=== PATIENT | male | born 1965 | race Caucasian/White ===

== ENCOUNTER 2025-07-25 09:16 | Emergency (ER) | payer BC, SELFPAY ==
[2025-07-25] VITALS (21 sets, daily range): BP systolic 85–118; BP diastolic 61–83; PULSE 54–84; TEMP 36.9; O2SAT 94–100; BMI 28.0
--- NOTE | 2025-07-25 09:24 | ECG_ITS ---
[facility] Test Date: 2025-07-25 Pat Name: WENDY MORENO Department: Room: - Gender: Male Eight Arm Operator: : 1965 Requested By: Order Number: [id number] Reading MD: CURT JULIAN Measurements Intervals Hoyt Rate: 60 P: 40 GA: 130 QRS: 64 QRSD: 86 T: 61 QT: 406 QTc: 408 Interpretive Statements 1100 Sinus rhythm 9110 normal ECG No previous ECG available for comparison Electronically Signed On 07-25-2025 16:01:32 EDT by CURT JULIAN
--- NOTE | 2025-07-25 09:24 | CT_ITS ---
The [address] [address] Patient Name: WENDY MORENO MRN: [id number] date: 1965 Sex: M Assigned Patient Location: ER Current Patient Location: ER Accession/Order Number: [id number] Exam Date: 07/25/2025 10:10 Report Date: 07/25/2025 10:45 At the request of: GAURAV UPTON DO Procedure: CT angio abdomen pelvis CTA OF THE ABDOMEN AND PELVIS WITH CONTRAST CLINICAL DATA: Acute bright red rectal bleeding this morning. Dizziness and syncope. COMPARISON: None Spiral images were obtained through the abdomen and pelvis following 100 mL of Omnipaque 350. Sagittal, coronal and 3-D volume rendered reconstructions of the aorta and its branches were reviewed. This CT exam was performed using one or more following dose reduction techniques: Automated exposure control, adjustment of the mA and/or kV according to patient size, or use of iterative reconstruction technique. Limited cuts through the lung bases show minor atelectasis or scarring. There is a tiny hiatal hernia. The abdominal aorta is normal caliber. There is no evidence of dissection. There is normal opacification of the visceral and iliac arteries. There is no pooling of contrast to suggest a site of active bleeding. Cholelithiasis is present. No intrahepatic masses are noted. The spleen, pancreas and adrenal glands show no acute abnormalities. There are symmetric renal nephrograms, without hydronephrosis. There are a few tiny lymph nodes. No ascites is present. There is fluid and food debris within the stomach. The small bowel loops are normal caliber. A small amount of colonic stool is seen. Left-sided colonic diverticula are visualized. There is subtle levoscoliotic curvature and degenerative changes at the spine. Images through the pelvis show no appendiceal inflammation. There are nondistended small bowel loops. There is fluid at the distal colon. Additional descending and sigmoid diverticula are noted. No active inflammation is seen. The prostate is within normal limits for size and contains calcification. The urinary bladder is poorly distended and the wall appears thickened. No ascites or lymphadenopathy is noted. There are screws at the proximal right femur. CT/CT angio abdomen pelvis IMPRESSION: CHOLELITHIASIS. NO BOWEL OR URINARY TRACT OBSTRUCTION. DIVERTICULOSIS. UNDER DISTENDED URINARY BLADDER WITH APPARENT WALL THICKENING. NO OBVIOUS ACTIVE BLEEDING. Impression dictated by: Megan Núñez M.D. 07/25/2025 10:45 AM Dictation Location: [place] [address] Electronically authenticated by: [id number] Y Date: 07/25/2025 10:45
--- NOTE | 2025-07-25 09:30 | ED_ITS ---
HPI HPI - General Adult General Chief complaint: GI Bleed Stated complaint: weakness Time Seen by Provider: 07/25/25 09:24 History of Present Illness HPI narrative: Patient is a 59-year-old male presenting to the emergency department from work for concerns of a syncopal event. Patient states that he had a bloody bowel movement earlier this morning. He has had a second bowel movement approximately an hour ago. He states that after the bowel movement, he got up from the toilet, walked over to his coworker, then felt extremely dizzy/lightheaded. He subsequently fainted. On EMS arrival, they state that the patient was on the floor, pale, and unresponsive. After a few seconds, he eventually came to. The patient and EMS deny any trauma or head injury during this event. Denies any seizure-like activity. Did not lose bladder/bowel function. No tongue biting. He denies ever having bloody stools in the past. He states that he has never had a colonoscopy. He denies history of intra-abdominal surgeries, diverticulosis, or hemorrhoids. He states that the bloody stools were painless. Patient on arrival still feels lightheaded when he sits up, but is otherwise asymptomatic. He denies any chest pain or shortness of breath. No abdominal pain, fevers, chills, nausea, or vomiting. He is not on anticoagulation. His only medical history is hypercholesterolemia. He has no history of cardiac disease. Related Data Allergies Allergy/AdvReac Type Severity Reaction Status Date / Time Penicillins Allergy Severe Swelling Verified 07/25/25 09:30 of Lip/Tongue/Throat Review of Systems ROS Status of ROS 10 or more systems reviewed and unremark able except as noted in history and below PFSH PFSH Social History Little interest or pleasure in doing things: not at all Feeling down, depressed, or hopeless: not at all Exam Narrative Exam Narrative: CONSTITUTIONAL: Well-appearing, answering questions and following commands appropriately SKIN: Was warm and dry, no pallor. EYES: No conjunctival pallor EARS, NOSE, THROAT: Moist oral mucosa. No tongue lacerations RESPIRATORY: Clear to auscultation bilaterally, no wheezes, crackles, or stridor, no use of accessory muscles CARDIOVASCULAR: Normal rate and regular rhythm. There is no S3, S4, murmur, rub. GASTROINTESTINAL: Abdomen was soft, non-tender, and non-distended. There is no guarding or rebound tenderness. Rectal examination performed with 2 nurse landscaper's demonstrated no active rectal bleeding. There is no rectal tenderness with MOLLY. There is no palpable/appreciable internal or external hemorrhoids or anal fissures. MUSCULOSKELETAL: No peripheral edema. NEUROLOGIC: Patient is awake and alert. Equal strength in all extremities. Facies were symmetrical. Constitutional Vital Signs, click to edit/add: Last Vital Signs Temp 98.5 F 07/25/25 09:25 Pulse 76 07/25/25 11:02 Resp 19 07/25/25 10:50 BP 108/73 07/25/25 11:02 Pulse Ox 99 07/25/25 10:50 O2 Del Method Room Air 07/25/25 09:35 Course Vital Signs Vital signs: Vital Signs Pulse Rate 62 07/25/25 09:18 Respiratory Rate 17 07/25/25 09:18 Pulse Oximetry 94 L 07/25/25 09:18 Temperature 98.5 F 07/25/25 09:25 Pulse Rate 76 07/25/25 11:02 Respiratory Rate 19 07/25/25 10:50 Blood Pressure 108/73 07/25/25 11:02 Pulse Oximetry 99 07/25/25 10:50 Oxygen Delivery Method Room Air 07/25/25 09:35 Medical Decision Making MDM Narrative Medical decision making narrative: Patient is a 59-year-old male presenting to the emergency department from work via EMS after 2 painless bloody bowel movements and a syncopal event. On arrival to the ED, patient was placed on the cardiac rehabilitation program director that demonstrated normal sinus rhythm by my interpretation. He was hypotensive with a blood pressure of 86/55. He is afebrile and saturating 100% on room air. His abdomen soft and nontender. Rectal examination demonstrated no active bleeding or hemorrhoids. My clinical impression is that the patient saw his old blood, and subsequently had a vasovagal event. Patient had prodromal symptoms prior to the LOC, making cardiogenic etiologies of lower likelihood. Differential diagnosis includes vasovagal syncope, AVM, diverticular bleed, internal hemorrhoid, ACS, arrhythmia, malignancy, or other electrolyte/metabolic derangement. IV was established and laboratory studies were obtained. He received 1 L bolus normal saline in the field, and an additional 1 L bolus of normal saline here in the ED. CT angiography of the abdomen/pelvis was obtained. 12 Lead EKG: Normal sinus rhythm at a rate of 60. Normal axis. No ST segment elevations. QRS, [place], and QTc interval within normal limits. Final impression: normal sinus rhythm without evidence of acute myocardial ischemia Laboratory studies were unremarkable. No significant electrolyte or metabolic derangement. No evidence of acute kidney injury. No anemia, leukocytosis, or thrombocytopenia. No transaminitis or hyperbilirubinemia. Troponin nonelevated. Fecal occult blood test positive. CT abdomen/pelvis independently reviewed and interpreted by myself and radiology demonstrated diverticulosis without active GI bleeding. On reevaluation, patient states he feels significantly improved. When he gets up from the bed, he does not become lightheaded or presyncopal. His hypotension is now resolved s/p 2 L of IV fluids. Orthostatic vital signs: Supine 108/73, heart rate 76. Sitting up 118/81, heart rate 84. Standing up 113/83, heart r ate 80. I do believe the patient stable for discharge and outpatient follow-up with his PCP. This presentation is likely secondary to vasovagal syncope. He has no active GI bleeding and is hemodynamically stable. He was instructed follow-up with his PCP in the next 3-5 days. I recommended he gets a colonoscopy as he is 59 and never had one. Return precautions were given including any new or con cerning symptoms, such as large amounts of rectal bleeding or further episodes of syncope. Patient understands and agrees to the plan. FINAL IMPRESSION: #Acute vasovagal syncope #Acute bright red blood per rectum DISPOSITION: Discharged home CONDITION: Good Medical Records Medical records reviewed: Yes I reviewed the patient's medical records Lab Data Lab results reviewed: Yes I reviewed the patient's lab results Labs: Lab Results 07/25/25 07/25/25 07/25/25 Range/Units 09:24 10:03 10:43 WBC 12.7 H (4.0-11.0) 10^3/uL RBC 4.74 (4.70-6.10) 10^6/uL Hgb 14.3 (14.0-18.0) g/dL Hct 42.9 (42.0-54.0) % MCV 90.5 (80.0-94.0) fL MCH 30.2 (25.9-34.0) pg MCHC 33.3 (29.9-35.2) g/dL RDW 13.0 (11.0-15.0) % Plt Count 253 (150-450) 10^3/uL MPV 10.1 (9.5-13.5) fL Neut % (Auto) 81.3 H (43.0-75.0) % Lymph % (Auto) 12.3 L (20.5-60.0) % [place] % (Auto) 5.1 (1.7-12.0) % Eos % (Auto) 0.4 L (0.9-7.0) % Baso % (Auto) 0.7 (0.2-2.0) % Neut # (Auto) 10.3 H (1.4-6.5) 10^3/uL Lymph # (Auto) 1.6 (1.2-3.8) 10^3/uL [place] # (Auto) 0.7 (0.3-0.8) 10^3/uL Eos # (Auto) 0.1 (0.0-0.7) 10^3/uL Baso # (Auto) 0.1 (0.0-0.1) 10^3/uL Abs Immat Gran (auto) 0.03 (0.00-0.03) 10^3/uL Imm/Tot Granulo (auto) 0.2 (0.0-0.5) % Sodium 145 (136-145) mmol/L Potassium 4.3 (3.5-5.1) mmol/L Chloride 111 H (98-107) mmol/L Carbon Dioxide 25.0 (21.0-32.0) mmol/L Anion Gap 13.3 BUN 12.0 (7.0-18.0) mg/dL Creatinine 0.98 (0.70-1.30) mg/dL Est GFR ( Amer) >60 (>=60 mL/min/1.73m^2) Est GFR (Non-Af Amer) >60 (>=60 mL/min/1.73m^2) BUN/Creatinine Ratio 12.2 Glucose 91 (74-106) mg/dL Calcium 8.1 L (8.5-10.1) mg/dL Magnesium 1.9 (1.8-2.4) mg/dL Total Bilirubin 0.3 (0.2-1.0) mg/dL AST 15 (15-37) U/L ALT 19 (16-63) U/L Alkaline Phosphatase 57 (46-116) U/L Troponin I High Sens 4.6 (4.0-76.1) pg/mL Total Protein 6.2 L (6.4-8.2) g/dL Albumin 2.9 L (3.4-5.0) g/dL Globulin 3.3 g/dL Albumin/Globulin Ratio 0.9 Stool Occult Blood Positive A Imaging Data CT scan - abdomen: Attestation: I personally reviewed and interpreted this imaging study as follows: Radiologist's impression: ITS Impressions Abdomen/Pelvis CTA 07/25/25 09:24 IMPRESSION: CHOLELITHIASIS. NO BOWEL OR URINARY TRACT OBSTRUCTION. DIVERTICULOSIS. UNDER DISTENDED URINARY BLADDER WITH APPARENT WALL THICKENING. NO OBVIOUS ACTIVE BLEEDING. Impression dictated by: Megan Núñez M.D. 07/25/2025 10:45 AM Dictation Location: [place] [address] Electronically authenticated by: [id number] Y Date: 07/25/2025 10:45 ECG Data Attestation: I personally reviewed and interpreted this ECG as follows: Discharge Plan Discharge Chief Complaint: GI Bleed Clinical Impression: Syncope, vasovagal, BRBPR (bright red blood per rectum) Patient Disposition: Home, Self-Care Time of Disposition Decision: 11:05 Condition: Good Mode of Transportation: Private Vehicle Print Language: [place] Instructions: Gastrointestinal Bleeding (ED), Syncope (ED)
[2025-07-25] MEDS: 0.9 % SODIUM CHLORIDE 1,000 ML 1000 ML IV (09:41)
[2025-07-25 10:29] LABS: Alanine Aminotransferase 19 U/L (16-63); Albumin Globulin Ratio 0.9; Albumin Level 2.9 g/dL (3.4-5.0); Alkaline Phosphatase 57 U/L (46-116); Anion Gap 13.3; Aspartate Amino Transferase 15 U/L (15-37); Blood Urea Nitrogen 12.0 mg/dL (7.0-18.0); Calcium 8.1 mg/dL (8.5-10.1); Carbon Dioxide 25.0 mmol/L (21.0-32.0); Chloride 111 mmol/L (98-107); Estimated GFR (African America >60 (>=60 mL/min/1.73m^2); Estimated GFR (Non-African Ame >60 (>=60 mL/min/1.73m^2); Globulin 3.3 g/dL; Glucose 91 mg/dL (74-106); Potassium 4.3 mmol/L (3.5-5.1); Sodium 145 mmol/L (136-145); Total Protein 6.2 g/dL (6.4-8.2)
[2025-07-25 10:33] LABS: Magnesium 1.9 mg/dL (1.8-2.4)
[2025-07-25 10:53] LABS: Hematocrit 42.9 % (42.0-54.0); Hemoglobin 14.3 g/dL (14.0-18.0); Immature Granulocytes Abs Auto 0.03 10^3/uL (0.00-0.03); Immature Granulocytes Pct Auto 0.2 % (0.0-0.5); Lymphocytes Absolute Auto 1.6 10^3/uL (1.2-3.8); Mean Corpuscular HGB Conc 33.3 g/dL (29.9-35.2); Mean Corpuscular Hemoglobin 30.2 pg (25.9-34.0); Mean Corpuscular Volume 90.5 fL (80.0-94.0); Platelet Count 253 10^3/uL (150-450); Red Blood Count 4.74 10^6/uL (4.70-6.10); White Blood Count 12.7 10^3/uL (4.0-11.0)
[2025-07-25 11:06] LABS: INR 1.07; Partial Thromboplastin Time 26.5 sec (22.3-36.2); Prothrombin Time 11.3 sec (9.0-11.6)
--- OUTSIDE RECORDS SUMMARY | 2025-07-25 11:06 | XMS_ITS | Clinical Summary ---
Author Organization [facility] Address [address] [place] [place] [address] Care Team Providers Care Renovation Plant Supervisor Name Role Phone Miguel Knapp Primary Care Provider [phone] Allergies Active Allergy Reactions Criticality Noted Date Comments Penicillins Swelling,Itchy Throat 09/23/2018 Medications Rosuvastatin 5 MG tabletIndications: Elevated LDL cholesterol level Take 1 tablet by mouth daily. 90 tablet 3 07/14/20 24 Active Methocarbamol 500 MG tablet Take 1 tablet by mouth every 12 hours as needed for Muscle spasms. 60 tablet 1 02/07/20 25 Active diclofenac EC 75 MG Tab tabletIndications: Primary osteoarthritis of right knee,Chronic pain of right knee Take 1 tablet by mouth 2 times daily. 60 tablet 2 07/20/20 25 Active tizanidine 2 MG Tab 1-2 pills po at bedtime prn spasms/pain 30 tablet 1 09/22/20 19 020 Discontinued Active Problems Problem Noted Date Diagnosed Date Elective surgery 11/10/2024 Obesity: body mass index of 30.0-34.9 10/17/2018 Clostridium difficile enterocolitis 09/24/2018 Assessment & Plan (09/24/2018 10:15 AM EDT): Flagyl ordered Isolation precautions Continue to monitor Nausea 09/24/2018 Assessment & Plan (09/24/2018 10:15 AM EDT): Resolved Zofran PRN for nausea and vomiting Monitor electrolytes and I&O Cholelithiasis 09/24/2018 Assessment & Plan (09/24/2018 10:16 AM EDT): Surgeon following Acute abdominal series ordered Continue to monitor Generalized abdominal pain 09/24/2018 Assessment & Plan (09/24/2018 10:16 AM EDT): Pain management Acute abdominal series ordered Partial small bowel obstruction 09/23/2018 Assessment & Plan (09/24/2018 10:14 AM EDT): Patient started on clear liquid diet today Zofran for nausea Surgeon consulted, Levaquin, Flagyl and Scopolamine patch ordered IVF running Monitor labs and VS as ordered Abdominal XR ordered Encounters Date Type Department Care Team Description 07/20/2025 Telephone [facility] [address] [place] [address] Dona Knapp MA Medication Management 05/17/2025 11:30 AM EDT Office Visit [address] [address] Jose Rose DO Primary osteoarthritis of right knee (Primary Dx) 05/17/2025 11:13 AM EDT - 05/17/2025 11:59 PM EDT Hospital Encounter [facility] [address] [place] [id number] Jose Rose DO Discharge Disposition: Home or Self Care from Last 3 Months Immunizations Immunization Administration Dates Next Due [id number] COVID-19 monovalen t vaccine (Moderna), 12yr+, 100mcg/0.5mL 04/25/2021,03/25/2021 Family History Medical History Relation Name Comments Hypertension Father Jad Moreno Sr. Stroke Father Jad Moreno Sr. Bleeding or Clotting Problems Neg Hx Coronary Artery Disease Neg Hx Diabetes Neg Hx Dysrhythmia Neg Hx Heart Failure Neg Hx Myocardial Infarction Neg Hx Relation Name Status Comments Father Jad Moreno Sr. Alive Mother Alive Social History Tobacco Use Types Packs/Day Years Used Date Smoking Tobacco: Never Smokeless Tobacco: Never Tobacco Cessation:Counseling Given: Not Answered Alcohol Use Standard Drinks/Week Comments Yes 1 (1 standard drink = 0.6 oz pur e alcohol) Just Occasionally Sex and Gender Information Value Date Recorded Sex Assigned at Not on file Legal Sex Male 7:10 PM EST Gender Identity Male 09/23/2018 4:59 PM EDT Sexual Orientation Straight 12/10/2021 11 :46 AM EST Last Filed Vital Signs Vital Sign Reading Time Taken Comments Blood Pressure 146/92 02/06/2025 10:05 AM EDT Pulse 96 02/06/2025 10:05 AM EDT Temperature 36.2 C (97.2 F) 05/17/2025 11:32 AM EDT Respiratory Rate 16 11/11/2024 8:21 AM EST Oxygen Saturation 96% 02/06/2025 10:05 AM EDT Inhaled Oxygen Concentration - - Weight 90.4 kg (199 lb 3.2 oz) 05/17/2025 11:32 AM EDT Height 172.7 cm (5' 8 ) 05/17/2025 11:32 AM EDT Body Mass Index 30.29 05/17/2025 11:32 AM EDT Plan of Treatment Upcoming Encounters Date Type Department Care Team (Late st Contact Info) Description 08/17/2025 10:45 AM EDT Office Visit [facility] [address] [place] [address] Jose Rose, DO [address] [place] [address] Health Maintenance Due Date Last Done Comments HEPATITIS C VIRUS SCREENING 1967 TETANUS 1967 HIV SCREENING DISCUSSION 1982 HEP B VACCINE (1 of 3 - 19+ 3-dose series) 1986 TDAP (ADULT) 1986 COLORECTAL CANCER SCREENING DISCUSSION 2012 PNEUMOCOCCAL VACCINE SERIES (1 of 1 - PCV) 2017 ZOSTER (SHINGLES) VACCINE (1 of 2) 2017 PROSTATE CANCER SCREENING DISCUSSION 06/12/2024 06/12/2023, 06/12/2023, 06/09/2023, Additional history exists COVID-19 VACCINE (3 - 2023-2 5 season) 2024 04/25/2021, 03/25/2021 INFLUENZA VACCINE (#1) 2025 LIPID SCREENING 06/12/2028 06/12/2023, 2018 Goals Goal Patient Goal Type Associated Problems Recent Progress Patient-Stated? Author Physical Therapy Physical Therapy No Coreen Nation, PT Note: 1. The patient will safely, correctly, and independently demonstrate the ability to perform a progressive HEP to achieve maximum rehabilitation potential and prevent this condition from recurring. 2. The patient will reduce present VAS pain to 0-1/10 to decrease dependence on medication. 3. The patient will return to prior sleeping positions and patterns without disturbances due to the present symptoms of this condition. 4. The patient will demonstrate normal transfer and bed mobility ability (sit to and from stand, sit to and from supine, scooting and rolling) to return to prior level of function. 5. The patient will demonstrate functional pain free spinal AROM and at least good strength in core and UE musculature to assist with prior household management tasks, sustaining static positions, stair negotiation, ambulation, family care tasks, work, and or ADL. 6. The patient will demonstrate safe body mechanics with desired lifting, pushing, and pulling tasks to prevent re-injury and assist with return to prior level of function. 7. Reduce fall risk by recognizing and educating on contributing factors including home environment, current health status, and mobility limitations. Medical Devices Implanted Type Area Oliver Filter Operator Device Identifier Shelf Expiration Date Model / Serial / Lot Graft Bn 2cc Ptty Attrax Strl [id number] - [id number] Implanted:Qty : 1 on 11/10/2024 by Rajan Chappell MD at [facility] Tissue N/A: Spine Cervical NUVASIVE 04/19/2028 [id number] / / [id number] Screw Bn 17mm 3.5mm Slf Drl [id number] - [id number] Implanted:Qty : 1 on 11/10/2024 by Rajan Chappell MD at [facility] N/A: Spine Cervical NUVASIVE 11/10/2024 [id number] 11/10/2024 Plate Bn 36mm 1.6v Spne Crv [id number] - [id number] Implanted:Qty : 1 on 11/10/2024 by Rajan Chappell MD at [facility] N/A: Spine Cervical NUVASIVE 11/10/2024 [id number] 11/10/2024 Screw Bn 19mm 3.5mm Slf Drl [id number] - [id number] Implanted:Qty : 1 on 11/10/2024 by Rajan Chappell MD at [facility] N/A: Spine Cervical NUVASIVE 11/10/202411/10/2024 Screw Bn 19mm 3.5mm Slf Drl [id number] - [id number] Implanted:Qty : 1 on 11/10/2024 by Rajan Chappell MD at [facility] N/A: Spine Cervical NUVASIVE 11/10/202411/10/2024 Screw Bn 17mm 3.5mm Slf Drl [id number] - [id number] Implanted:Qty : 1 on 11/10/2024 by Rajan Chappell MD at [facility] N/A: Spine Cervical NUVASIVE 11/10/202411/10/2024 Screw Bn 19mm 3.5mm Slf Drl [id number] - [id number] Implanted:Qty : 1 on 11/10/2024 by Rajan Chappell MD at [facility] N/A: Spine Cervical NUVASIVE 11/10/202411/10/2024 Screw Bn 19mm 3.5mm Slf Drl [id number] - [id number] Implanted:Qty : 1 on 11/10/2024 by Rajan Chappell MD at [facility] N/A: Spine Cervical NUVASIVE 11/10/202411/10/2024 Cage Spinal [id number] Modulus 7d Cervical [id number] - [id number] Implanted:Qty : 1 on 11/10/2024 by Rajan Chappell MD at [facility] N/A: Spine Cervical NUVASIVE 01/12/2029 [id number] / / [id number] Cage Spinal [id number] Modulus 7d Cervical [id number] - [id number] Implanted:Qty : 1 on 11/10/2024 by Rajan Chappell MD at [facility] N/A: Spine Cervical NUVASIVE 08/17/2029 [id number] / / [id number] Procedures Procedure Name Priority Date/Time Associated Diagnosis Comments NV DRAIN/INJECT LARGE JOINT/BURSA PERFORMABLE Routine 05/17/2025 11:30 AM EDT Primary osteoarthritis of right knee LIPID PANEL W CALCULATED LDL Today 06/12/2023 7:53 AM EDT Numbness and tingling in right hand Elevated LDL cholesterol level Screening PSA (prostate specific antigen) Routine general medical examination at a health care facility Diastasis recti PSA, SCREENING Today 06/12/2023 7:53 AM EDT Numbness and tingling in right hand Elevated LDL cholesterol level Screening PSA (prostate specific antigen) Routine general medical examination at a health care facility Diastasis recti from Last 3 Months or Most Recently Relevant to Health Maintenance Results * NV DRAIN/INJECT LARGE JOINT/BURSA PERFORMABLE (05/17/2025 11:30 AM EDT) Anatomical Region Laterality Modality Other Narrative 05/17/2025 11:30 AM EDT Tavo Hawkins 05/17/2025 1:57 PM LARGE JOINT/BURSA INJECTION AND/OR ASPIRATION: R knee Date/Time: 05/17/2025 11:30 AM Performed by: Jose Rose DO Authorized by: Jose Rose DO Supporting Documentation Indications: pain Procedure Details: Location: knee - R knee Local Anesthetic: ethyl chloride (cold spray) Needle size: 22 G Medication Verification: I have personally verified and performed the final check of the medication(s) used in this procedure prior to administration. The following items were included during the verification process for medication(s) administered: drug name, strength, volume, expiration, physical integrity and appearance of the medication(s). Medications administered: 1 mL triamcinolone 40 MG/ML; 3 mL Lidocaine 10 mg/mL Patient tolerance: patient tolerated the procedure well with no immediate complications Pre-Procedure Details The attending physician was present for the entire procedure. Consent: Consent was obtained prior to the procedure after discussion of the risks, benefits and alternatives, and expected outcomes were discussed with the patient. The possibilities of reaction to medication, bleeding, infection, the need for additional procedures, failure to diagnosis a condition, and creating a complication requiring operation were discussed with the patient. The patient concurred with the proposed plan, giving consent. Timeout: Immediately prior to procedure a time out was called to verify the correct patient, procedure, medication(s) and site/laterality as required. Preparation: Patient was prepped in the usual sterile fashion. us Jose Rose DO BEDSIDE PROCEDURES Final Resul t * PSA, SCREENING (06/12/2023 7:53 AM EDT) PROSTATE SPECIFIC ANTIGEN 0.831 0 - 4 NG/ML [address] Comment: OBTAIN BASELINE BETWEEN AGES OF 45-75 LESS THAN 1.0 ng/mL REPEAT TESTING AT 2-4 YEARS 1.0-3.0 ng/mL REPEAT TESTING AT 1-2 YEARS GREATER THAN 3.0 ng/mL REPEAT PSA,MOLLY, AND WORKUP FOR BENIGN DISEASE AGE GREATER THAN 75, PSA LESS THAN 3 ng/mL REPEAT TESTING IN 1-4 YEARS Testing performed at [place], [place] [address] Blood 06/12/2023 7:53 AM EDT 06/12/2023 7:54 AM EDT us Miguel GILL IMMUNOLOGY ORDERABLES Final R esult [address] [address] * (ABNORMAL) LIPID PANEL W CALCULATED LDL (06/12/2023 7:53 AM EDT) CHOLESTEROL 236(H) 120 - 200 MG/DL [address] TRIGLYCERIDE 133 0 - 150 MG/DL [address] HDL CHOLESTEROL 35 26 - 63 MG/DL [address] LDL CHOLESTEROL, CALCULATED 174 MG/DL [address] VLDL Cholesterol, Calculated 27(H) 5.0 - 25 MG/DL [address] TCHOL/HDL RATIO, MANUAL ENTER 6.[address] Comment: RISK TOTAL/HDL RATIO MEN WOMEN 1/2 AVERAGE 3.43 3.27 AVERAGE 4.97 4.44 2X AVERAGE 9.55 7.05 3X AVERAGE 23.99 11.04 Testing performed at [place], [place] [address] Blood 06/12/2023 7:53 AM EDT 06/12/2023 7:54 AM EDT Miguel GILL CHEMISTRY ORDERABLES Final Re sult [facility] - [address] [facility] [address] [place] [address] from Last 3 Months or Most Recently Relevant to Health Maintenance Insurance [facility] PPO POS [facility] PPO POS Advance Directives For more information, please contact: [phone] (7:30 AM - 6PM [facility], Wednesday-Wednesday) * Full Code (Latest Code Status on File) Date Activated Date Inactivated Comments 11/10/2024 6:44 PM * Full Code Date Activated Date Inactivated Comments 09/23/2018 9:39 PM 11/10/2024 6:44 PM Care Teams Renovation Plant Supervisor Relationship Specialty Start Date End Date Miguel Knapp PA PCP - General Physician Mechanical Maintenance Supervisor 10/25/18
--- OUTSIDE RECORDS SUMMARY | 2025-07-25 11:06 | XMS_ITS | Encounter Summary ---
Author Organization [facility] Address [address] [place] [address] Care Team Providers Care Drying Rack Changer Name Role Phone Miguel Knapp Primary Care Provider [phone] Reason for Visit * Reason Onset Date Comments Order Request 08/25/2024 Encounter Details Date Type Department Care Team (Late st Contact Info) Description 08/25/2024 Telephone Central Scheduling [address] [place] [address] Rajan Chappell MD [address] [facility] [address] [place], [place] [id number] Order Request Social History Tobacco Use Types Packs/Day Years Used Date Smoking Tobacco: Never Smokeless Tobacco: Never Alcohol Use Standard Drinks/Week Comments Yes 1 (1 standard drink = 0.6 oz pur e alcohol) Just Occasionally Sex and Gender Information Value Date Recorded Sex Assigned at Not on file Legal Sex Male 7:10 PM EST Gender Identity Male 09/23/2018 4:59 PM EDT Sexual Orientation Straight 12/10/2021 11 :46 AM EST documented as of this encounter Functional Status * Are you deaf or do you have serious difficulty hearing? Answer Date of Assessment Author No 06/09/2023 4:03 PM EDT Patricia Merchant * Are you blind or do you have serious difficulty seeing, even when wearing glasses? Answer Date of Assessment Author No 06/09/2023 4:03 PM EDT Patricia Merchant * Do you have serious difficulty walking or climbing stairs (5 years or older)? Answer Date of Assessment Author No 06/09/2023 4:03 PM EDT Patricia Merchant * Do you have difficulty dressing or bathing (5 yrs or older)? Answer Date of Assessment Author No 06/09/2023 4:03 PM EDT Mayur Patricia * Because of a physical, mental, or emotional condition, do you have difficulty doing errands alone such as visiting a doctor's office or shopping (5 yrs or older)? Answer Date of Assessment Author No 06/09/2023 4:03 PM EDT Patricia Merchant documented as of this encounter Mental Status * Because of a physical, mental, or emotional condition, do you have serious difficulty concentrating, remembering, or making decisions (5 yrs or older)? Answer Entry Date Author No 06/09/2023 4:03 PM EDT Patricia Merchant documented in this encounter Miscellaneous Notes * Telephone Encounter - Pritiaki Noé - 08/25/2024 4:[address] Chappell, Order Request (f/u request also): Physician Name: Rajan Chappell Is this for PT or OT? (Please double check the last appt note to confirm.) yes - PT Is this for imaging (what type)? no Name of Facility that the order needs to be sent to? [facility] Fax number to Facility? No fax number was provider Attn: none [facility] Department of Neurosurgery encourages you this request via [email or web address]t. Please note our goal turnaround time for order requests 1-2 business days. documented in this encounter Plan of Treatment Upcoming Encounters Date Type Department Care Team (Late st Contact Info) Description 08/17/2025 10:45 AM EDT Office Visit [facility] [address] [place] [address] Jose Rose, DO [address] [place] [address] documented as of this encounter Goals Goal Patient Goal Type Associated Problems [...] environment, current health status, and mobility limitations. documented as of this encounter Visit Diagnoses Not on filedocumented in this encounter Care Teams Drying Rack Changer Relationship Specialty Start Date End Date Miguel Knapp PA PCP - General Physician Explosive Ordnance Specialist 10/25/18 documented as of this encounter
--- OUTSIDE RECORDS SUMMARY | 2025-07-25 11:06 | XMS_ITS | Encounter Summary ---
Author Organization [facility] Address [address] [place] [address] Care Team Providers Care Fine Sander Name Role Phone Miguel Knapp Primary Care Provider [phone] Encounter Details Date Type Department Care Team (Late st Contact Info) Description 08/22/2024 Orders Only Imaging [facility] [address] [place] [address] Rajan Chappell MD [address] [facility] [address] [place] [address] Cervical radiculopathy (Primary Dx) Social History Tobacco Use Types Packs/Day Years Used Date Smoking Tobacco: Never Smokeless Tobacco: Never Alcohol Use Standard Drinks/Week Comments Yes 0 (1 standard drink = 0.6 oz pur e alcohol) a few beers on the weekend Sex and Gender Information Value Date Recorded [...] 06/09/2023 4:03 PM EDT Patricia Merchant * Because of a physical, mental, or [...] EDT Patricia Merchant documented in this encounter Plan of Treatment Upcoming Encounters Date Type Department Care Team (Late st Contact Info) Description 08/17/2025 10:45 AM EDT Office Visit [facility] [address] [place] [address] Jose Rose, DO [address] [place] [address] documented as of this encounter Goals Goal Patient Goal Type Associated Problems Recent Progress Patient-Stated? Author Physical Therapy Physical Therapy Coreen Jones, PT Note: 1. The patient will safely, [...] mobility limitations. documented as of this encounter Results * XR SPINE CERVICAL 4-5 VIEWS (08/23/2024 3:08 PM EDT) Anatomical Region Laterality Modality C-spine Diagnostic Radio logy 08/23/2024 3:10 PM EDT Impressions 08/23/2024 3:13 PM EDT IMPRESSION: Multilevel disc disease No spinal instability with flexion or extension Borderline spinal stenosis Narrative 08/23/2024 3:13 PM EDT EXAM: XR SPINE CERVICAL 4-5 VIEWS, 08/23/2024 15:08 PM COMPARISON: No priors available for comparison. CLINICAL INDICATIONS: Cervical radiculopathy RELEVANT CLINICAL HISTORY: M54.12:Cervical radiculopathy Ap/lateral/flex/ex; FINDINGS: 4 images obtained. There are 7 cervical vertebral bodies identified. No compression deformities. There is multilevel disc disease predominantly at C5-6 and C6-7. No spondylolisthesis. No spinal instability with flexion or extension. Facets are aligned. Bony spinal canal is at the lower limits of normal. No prevertebral soft tissue swelling Procedure Note Lina Messer DO - 08/23/2024 EXAM: XR SPINE CERVICAL 4-5 VIEWS, 08/23/2024 15:08 PM COMPARISON: No priors available for comparison. CLINICAL INDICATIONS: Cervical radiculopathy RELEVANT CLINICAL HISTORY: M54.12:Cervical radiculopathy Ap/lateral/flex/ex; FINDINGS: 4 images obtained. There are 7 cervical vertebral bodies identified. No compression deformities. There is multilevel disc disease predominantlyat C5-6 and C6-7. No spondylolisthesis. No spinal instability with flexionor extension. Facets are aligned. Bony spinal canal is at the lower limits of normal. No prevertebral soft tissue swelling IMPRESSION IMPRESSION: Multilevel disc disease No spinal instability with flexion or extension Borderline spinal stenosis Rajan Chappell MD DIAGNOSTIC IMAGING ORDERABLES Fi nal Result * XR SPINE SCOLIOSIS 2-3 VIEWS (08/23/2024 3:08 PM EDT) Anatomical Region Laterality Modality Spine, T-spine, T-spine, L-spine Diagnostic Radiology 08/23/2024 3:15 PM EDT Impressions 08/23/2024 3:17 PM EDT IMPRESSION: Slight right-sided curvature of the midthoracic spine Narrative 08/23/2024 3:17 PM EDT EXAM: XR SPINE SCOLIOSIS 2-3 VIEWS, 08/23/2024 15:08 PM COMPARISON: Cervical spine radiographs performed the same day CLINICAL INDICATIONS: scoli eval RELEVANT CLINICAL HISTORY: M54.12:Cervical radiculopathy FINDINGS: 8 images obtained. There are 12 rib-bearing thoracic vertebral bodies and 5 lumbar vertebral bodies. Multilevel degenerative changes throughout the cervical, thoracic and lumbar spine. Minimal right-sided curvature of the thoracic spine measuring 7 degrees. No significant curvature of the lumbar spine. No significant pelvic tilt. 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 Procedure Note Lina Messer DO - 08/23/2024 EXAM: XR SPINE SCOLIOSIS 2-3 VIEWS, 08/23/2024 15:08 PM COMPARISON: Cervical spine radiographs performed the same day CLINICAL INDICATIONS: scoli eval RELEVANT CLINICAL HISTORY: M54.12:Cervical radiculopathy FINDINGS: 8 images obtained. There are 12 rib-bearing thoracic vertebral bodies and 5 lumbarvertebral bodies. Multilevel degenerative changes throughout the cervical, thoracicand lumbar spine. Minimal right-sided curvature of the thoracic spine measuring 7 degrees.No significant curvature of the lumbar spine. No significant pelvic tilt. 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 IMPRESSION IMPRESSION: Slight right-sided curvature of the midthoracic spine Rajan Chappell MD DIAGNOSTIC IMAGING ORDERABLES Fi nal Result documented in this encounter Visit Diagnoses Diagnosis Cervical radiculopathy- Primary Brachial neuritis or radiculitis nos Cervical radiculopathy Brachial neuritis or radiculitis nos Cervical radiculopathy Brachial neuritis or radiculitis nos documented in this encounter Care Teams Fine Sander Relationship Specialty Start Date End Date Miguel Knapp PA PCP - General Physician Delivery Specialist 10/25/18 documented as of this encounter
--- OUTSIDE RECORDS SUMMARY | 2025-07-25 11:07 | XMS_ITS | Encounter Summary ---
Author Organization [facility] Address [address] [place] [address] Care Team Providers Care Wrapper Sheeter Name Role Phone Miguel Knapp Primary Care Provider [phone] Reason for Visit * Reason Onset Date Comments Medication Management 07/20/2025 Encounter Details Date Type Department Care Team (Late st Contact Info) Description 07/20/[address] [facility] [address] [place] [address] Dona Knapp MA Medication Management Social History Tobacco Use Types Packs/Day Years [...] encounter Miscellaneous Notes * Telephone Encounter - Dona Knapp MA - 07/20/2025 9:58 AM EDT Patient called requesting refill on Diclofenac 75 mg 1 tablet twice a day # 60 RF X 2. We had seen patient on 05/17 and he has a follow up on 08/17/25 for RT knee OA. He would like medication sent to [facility]. Rose ok'd refill. Medication was e-script to pharmacy. documented in this encounter Plan of Treatment Upcoming Encounters Date Type Department Care Team (Late st Contact Info) Description 08/17/2025 10:45 AM EDT Office Visit [facility] [address] [place] [address] Jose Rose, DO [address] [place] [address] documented as of this encounter Goals Goal [...] documented as of this encounter Visit Diagnoses Diagnosis Primary osteoarthritis of right knee- Primary Primary localized osteoarthrosis, lower leg Chronic pain of right knee documented in this encounter Care Teams Wrapper Sheeter Relationship Specialty Start Date End Date Miguel Knapp PA PCP - General Physician Rubber Extrusion Machine Operator 10/25/18 documented as of this encounter
== END 2025-07-25 11:25 | disposition home or self-care (01) ==
PROVIDERS: Emergency Provider Student in an Organized Health Care Education/Training Program; PCP Physician Assistant
DX: R55 Syncope and collapse (principal); K62.5 Hemorrhage of anus and rectum; E78.00 Pure hypercholesterolemia, unspecified; K80.20 Calculus of gallbladder without cholecystitis without obstruction; K57.90 Diverticulosis of intestine, part unspecified, without perforation or abscess without bleeding
CPT/HCPCS: 36415; 74174; 80053; 83735; 84484; 85025; 85610; 85730; 86850; 86900; 86901; 93005; 99285; G0328; Q9967